=== PATIENT | male | born 1980 | race Hispanic/Latino ===

== ENCOUNTER 2017-02-10 06:32 | Emergency (ER) | payer OTHER ==
[2017-02-10 06:55] VITALS: BP 150/97; PULSE 90; RESP 18; TEMP 98; O2SAT 98
--- NOTE | 2017-02-10 07:24 | ED PDOC ---
HPI: Nose Bleed Time Seen by Provider: 02/10/17 07:15 Chief Complaint (Nursing): ENT Problem Chief Complaint (Provider): Nose bleed History Per: Patient History/Exam Limitations: no limitations Onset/Duration Of Symptoms: Days (x2) Current Symptoms Are (Timing): Intermittent Episodes Location Of Bleeding: Left Nare Additional Complaint(s): Alexandru is a 36 y/o male who presents to the ED complaining of recurrent nosebleeds from the left nare, onset 2 days ago with another last night and this morning. Each time he has been able to stop the bleeding by applying pressure and a cold compress. Denies any associated nose injury or trauma, cough , cold congestion, shortness of breath, chest pain, dizziness, headache, or weakness. He has no prior history of frequent nose bleeds. Reports working at a [employer], + dry air. PMD: None provided Past Medical History Reviewed: Historical Data, Nursing Documentation, Vital Signs Vital Signs: Last Vital Signs Temp 98.0 F 02/10/17 06:52 Pulse 90 02/10/17 06:52 Resp 18 02/10/17 06:52 BP 150/97 H 02/10/17 06:52 Pulse Ox 98 02/10/17 06:52 - Medical History PMH: No Chronic Diseases - Surgical History Surgical History: No Surg Hx - Family History Family History: States: Unknown Family Hx - Social History Current smoker - smoking cessation education provided: No Alcohol: None Drugs: Denies - Allergies Allergies/Adverse Reactions: Allergies Allergy/AdvReac Type Severity Reaction Status Date / Time No Known Allergies Allergy Verified 02/10/17 07:19 Review of Systems ROS Statement: Except As Marked, All Systems Reviewed And Found Negative Constitutional: Negative for: Fever, Weakness ENT: Negative for: Nose Congestion Cardiovascular: Negative for: Chest Pain Respiratory: Negative for: Cough, Shortness of Breath Gastrointestinal: Negative for: Nausea, Vomiting Neurological: Negative for: Weakness, Numbness, Headache, Dizziness Physical Exam - Reviewed Nursing Documentation Reviewed: Yes Vital Signs Reviewed: Yes - Physical Exam Appears: Positive for: Well, Non-toxic, No Acute Distress Head Exam: Positive for: ATRAUMATIC, NORMAL INSPECTION, NORMOCEPHALIC Skin: Positive for: Normal Color, Warm, Dry Eye Exam: Positive for: EOMI, Normal appearance, PERRL ENT: Positive for: Normal ENT Inspection, Other (Dried blood at the left septal area. No active bleeding.) Neck: Positive for: Normal, Painless ROM Cardiovascular/Chest: Positive for: Regular Rate, Rhythm. Negative for: Murmur Respiratory: Positive for: Normal Breath Sounds. Negative for: Respiratory Distress Gastrointestinal/Abdominal: Positive for: Normal Exam, Soft. Negative for: Tenderness Back: Positive for: Normal Inspection. Negative for: L CVA Tenderness, R CVA Tenderness, Vertebral Tenderness Extremity: Positive for: Normal ROM. Negative for: Pedal Edema, Deformity Neurologic/Psych: Positive for: Alert, Oriented. Negative for: Motor/Sensory Deficits - ECG O2 Sat by Pulse Oximetry: 98 (RA) Pulse Ox Interpretation: Normal Medical Decision Making Medical Decision Making: Time: 7:15 Initial Plan: Given vasoline to apply to nare. Discussed with patient the importance of keeping the area moist. Will observe patient in the ED to ensure bleeding does not recur. Scribe Attestation: Documented by Cathi Brown, acting as a scribe for Saud Senior MD Provider Scribe Attestation: All medical record entries made by the Scribe were at my direction and personally dictated by me. I have reviewed the chart and agree that the record accurately reflects my personal performance of the history, physical exam, medical decision making, and the department course for this patient. I have also personally directed, reviewed, and agree with the discharge instructions and disposition. Disposition - Clinical Impression Clinical Impression: Epistaxis - Disposition Referrals: [facility] [Outside] - 02/11/17 Condition: STABLE Additional Instructions: Return if not better in 3 days. Instructions: Nosebleed (ED) Forms: [employer] (Thai)
== END 2017-02-10 07:42 | disposition home or self-care (01) ==
LOC: H.ER 06:32
DX: R04.0 Epistaxis (principal)

== ENCOUNTER 2017-02-10 19:37 | Emergency (ER) | payer OTHER ==
[2017-02-10 19:46] VITALS: PULSE 94; RESP 18; TEMP 98.7; O2SAT 97
[2017-02-10] MEDS ORDERED: Phenylephrine 0.5% Nasal Spray NAS STA (20:21)
[2017-02-10] MEDS ORDERED: Phenylephrine 0.5% Nasal Spray NAS ONE (20:25)
[2017-02-10 20:37] VITALS: BP 146/106
--- NOTE | 2017-02-10 20:37 | ED PDOC ---
HPI: General Adult Time Seen by Provider: 02/10/17 20:10 Chief Complaint (Nursing): ENT Problem Chief Complaint (Provider): nosebleed History Per: Patient History/Exam Limitations: no limitations Onset/Duration Of Symptoms: Days (x2) Current Symptoms Are (Timing): Still Present Additional Complaint(s): Alexandru Guajardo is a 36 year old overweight male who presents to the emergency department for an evaluation of a nosebleed, resolved upon arrival, ongoing for 2 days. Denied any injury, use of blood thinners, fever, chills, headache, chest pain or shortness of breath. 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 PMD: none provided Past Medical History Reviewed: Historical Data, Nursing Documentation, Vital Signs Vital Signs: Last Vital Signs Temp 98.7 F 02/10/17 19:42 Pulse 94 H 02/10/17 19:42 Resp 18 02/10/17 19:42 BP 146/106 H 02/10/17 20:37 Pulse Ox 97 02/10/17 20:49 - Family History Family History: States: Unknown Family Hx - Home Medications Home Medications: Ambulatory Orders Medication Instructions Recorded hydroCHLOROthiazide [Hydrodiuril] 25 mg PO DAILY #30 tab 02/10/17 - Allergies Allergies/Adverse Reactions: Allergies Allergy/AdvReac Type Severity Reaction Status Date / Time No Known Allergies Allergy Verified 02/10/17 07:19 Review of Systems ROS Statement: Except As Marked, All Systems Reviewed And Found Negative Constitutional: Negative for: Fever, Chills ENT: Positive for: Nose Discharge (blood). Negative for: Other (injury) Cardiovascular: Negative for: Chest Pain Respiratory: Negative for: Shortness of Breath Neurological: Negative for: Headache Physical Exam - Reviewed Nursing Documentation Reviewed: Yes Vital Signs Reviewed: Yes - Physical Exam Appears: Positive for: Well, Non-toxic, No Acute Distress Head Exam: Positive for: ATRAUMATIC, NORMAL INSPECTION, NORMOCEPHALIC Skin: Positive for: Normal Color Eye Exam: Positive for: Normal appearance ENT: Positive for: Other (dry nares). Negative for: Normal ENT Inspection, Sinus Pain/Drainage (or active bleeding/injury) Neck: Positive for: Normal, Painless ROM, Supple. Negative for: Decreased ROM Cardiovascular/Chest: Positive for: Chest Non Tender, Tachycardia. Negative for : Regular Rate, Rhythm Respiratory: Positive for: Normal Breath Sounds. Negative for: Decreased Breath Sounds, Respiratory Distress Neurologic/Psych: Positive for: Alert, Oriented - ECG O2 Sat by Pulse Oximetry: 97 (RA) Pulse Ox Interpretation: Normal Medical Decision Making Medical Decision Making: Initial Impression: Resolved epistaxis Initial Plan: * Phenylephrine 0.5% Time: 2019 --charanjit provider evaluation, patient medically stable and requires no further treatment in the ED at this time. Patient will be discharged home. Counseling was provided and all questions were answered regarding diagnosis and relayed to patient the importance of following up with PCP for blood pressure management in 2-3 days. There is agreement to discharge plan. Return if symptoms persist or worsen. Clinical Impression: Hypertension; resolved epistaxis Scribe Attestation: Documented by Vera Raymundo, acting as a scribe for Juancho Cavazos MD. Provider Scribe Attestation: All medical record entries made by the Scribe were at my direction and personally dictated by me. I have reviewed the chart and agree that the record accurately reflects my personal performance of the history, physical exam, medical decision making, and the department course for this patient. I have also personally directed, reviewed, and agree with the discharge instructions and disposition. Disposition - Clinical Impression Clinical Impression: Epistaxis, Hypertension - Patient ED Disposition Is Patient to be Admitted: No Doctor Will See Patient In The: Office Counseled Patient/Family Regarding: Diagnosis, Need For Followup - Disposition Referrals: [facility] [Outside] Disposition: Routine/Home Disposition Time: 20:20 Condition: STABLE Prescriptions: hydroCHLOROthiazide [Hydrodiuril] 25 mg PO DAILY #30 tab Instructions: Nosebleed (ED), Hypertension (ED) Forms: [employer] (Upper Sorbian)
== END 2017-02-10 20:40 | disposition home or self-care (01) ==
LOC: H.ER 19:37
DX: R04.0 Epistaxis (principal); I10 Essential (primary) hypertension